=== PATIENT | male | born 1970 | race African-American/Black ===

== ENCOUNTER 2018-04-01 15:07 | Inpatient (IN) | payer OTHER, MEDICAID ==
[~2018-04-01] VITALS: Ht 175.3 cm; Wt 50.8 kg
[2018-04-01 15:44] LABS: BASOPHILS % (AUTO) 0.6 % (0.0-5.0); HEMATOCRIT 38.1 % (42-54); LYMPHOCYTES % (AUTO) 12.4 % (21.0-51.0); MEAN CORPUSCULAR HEMOGLOBIN 27.7 pg (27.0-33.0); MEAN CORPUSCULAR HGB CONC 32.9 g/dL (32.0-36.0); MEAN CORPUSCULAR VOLUME 84.2 fL (79-99); MONOCYTES % (AUTO) 7.8 % (3.0-13.0); NEUTROPHILS % (AUTO) 79.2 % (40.0-77.0); NUCLEATED RED BLOOD CELLS 0.1 % (0.0-0.19); PLATELET COUNT (AUTO) 181 K/uL (130-400); RED BLOOD CELL COUNT(AUTO) 4.52 MIL/uL (4.50-6.20); RED CELL DISTRIBUTION WIDTH 23.5 % (11.0-15.5); WHITE BLOOD COUNT (AUTO) 11.3 K/uL (4.8-10.8)
[2018-04-01 15:51] LABS: CARBON DIOXIDE 28 mmol/L (21-32); CHLORIDE 92 mmol/L (101-111); CREATININE 5.1 mg/dL (0.5-1.5); GLOMERULAR FILTR. RATE CALC 16 mL/min (>60); GLUCOSE,RANDOM 139 mg/dL (70-105); SODIUM SERUM 132 mmol/L (136-145); UREA NITROGEN, BLOOD 21 mg/dL (7-18)
[2018-04-01 15:54] LABS: INR 1.07 (0.85-1.15); PARTIAL THROMBOPLASTIN TIME 34.4 SEC (26.3-35.5); PROTHROMBIN TIME 11.2 SEC (9.6-11.6)
[2018-04-01] MEDS ORDERED: VANCOMYCIN 1GM+NS 250ML 250 ML IV ONE (15:55)
[2018-04-01 16:17] LABS: ALANINE AMINOTRANSFERASE 29 U/L (12-78); ALBUMIN 3.2 g/dL (3.5-5.0); ASPARTATE AMINOTRANSFERASE 33 U/L (10-37); BILIRUBIN,TOTAL 1.1 mg/dL (0.2-1.0); CREATINE KINASE MB 2.7 ng/mL (0.5-3.6); CREATINE KINASE, TOTAL 227 U/L (21-232); MYOGLOBIN 1316 ng/mL (10-92); TOTAL PROTEIN, SERUM 8.4 g/dL (6.0-8.3); TROPONIN I < 0.04 ng/mL (0.00-0.06)
[2018-04-01 19:00] VITALS: BP 123/81
[2018-04-01] MEDS: LEVOFLOXACIN 250 MG/D5W 50ML 50 ML IVPB SCH (21:27)
[2018-04-01] MEDS ORDERED: GLUCAGON 1MG KIT 1 MG ML IM PRN (21:30)
[2018-04-01] MEDS ORDERED: MORPHINE SULFATE 2 MG/ML 1ML SYG IVP PRN (21:30)
[2018-04-01] MEDS ORDERED: ACETAMINOPHEN 325 MG TAB PO PRN (21:30)
[2018-04-01] MEDS ORDERED: VANCOMYCIN PROTOCOL PER PHARMACY IV SCH (21:30)
[2018-04-01] MEDS ORDERED: DEXTROSE 50%-WATER 50 ML DISP.SYRIN IV PRN (21:30)
[2018-04-01] MEDS ORDERED: LEVOFLOXACIN 250 MG/D5W 50ML 50 ML IVPB SCH (22:00)
[2018-04-02] VITALS: BP 108/78
[2018-04-02 04:00] VITALS: BP 122/83
[2018-04-02 05:24] LABS: HEMATOCRIT 37.8 % (42-54); MEAN CORPUSCULAR HEMOGLOBIN 28.9 pg (27.0-33.0); MEAN CORPUSCULAR HGB CONC 34.2 g/dL (32.0-36.0); MEAN CORPUSCULAR VOLUME 84.5 fL (79-99); PLATELET COUNT (AUTO) 178 K/uL (130-400); RED BLOOD CELL COUNT(AUTO) 4.47 MIL/uL (4.50-6.20); RED CELL DISTRIBUTION WIDTH 23.2 % (11.0-15.5); WHITE BLOOD COUNT (AUTO) 8.6 K/uL (4.8-10.8)
[2018-04-02 05:33] LABS: CREATININE 6.5 mg/dL (0.5-1.5)
[2018-04-02] MEDS: INSULIN HUMULIN R 100 UNIT/ML 3ML SQ SCH ×4 (05:43→20:40)
[2018-04-02 08:00] VITALS: BP 117/80
[2018-04-02] MEDS ORDERED: FAMOTIDINE 20MG TAB 20 MG TAB PO SCH (09:00)
[2018-04-02] MEDS ORDERED: ENOXAPARIN SODIUM 40 MG/0.4 ML SYRINGE SQ SCH (09:00)
[2018-04-02] MEDS: FAMOTIDINE 20MG TAB 20 MG TAB PO SCH ×2 (09:19→20:39)
[2018-04-02 11:00] VITALS: BP 154/100
[2018-04-02] MEDS ORDERED: COMPOUND IV REFRIGERATED 1 EACH IVSOLN MISC PRN (13:00)
[2018-04-02] MEDS ORDERED: URSO250T11 PO (14:55)
[2018-04-02] MEDS ORDERED: PANT40TA25 PO (14:55)
[2018-04-02] MEDS ORDERED: GABA-529 PO (14:55)
[2018-04-02 16:00] VITALS: BP 193/124
[2018-04-02] MEDS ORDERED: METOPROLOL TARTRATE 50 MG TAB ONE (16:02)
[2018-04-02] MEDS: METOPROLOL TARTRATE 50 MG TAB PO SCH (16:15)
[2018-04-02] MEDS ORDERED: METOPROLOL TARTRATE 50 MG TAB PO SCH (16:15)
[2018-04-02 19:00] VITALS: BP 159/103
[2018-04-02] MEDS ORDERED: METOPROLOL TARTRATE 1 MG/ML 5ML VIAL IV PRN (20:15)
[2018-04-02] MEDS: HYDRALAZINE HCL 20 MG/ML VIAL IV PRN (20:33)
[2018-04-02] MEDS: ACETAMINOPHEN 325 MG TAB PO PRN (22:25)
[2018-04-03] VITALS (7 sets, daily range): BP systolic 118–196; BP diastolic 86–121
[2018-04-03] MEDS: INSULIN HUMULIN R 100 UNIT/ML 3ML SQ SCH ×4 (07:30→20:25)
[2018-04-03] MEDS ORDERED: ENOXAPARIN SODIUM 40 MG/0.4 ML SYRINGE SQ SCH (09:00)
[2018-04-03] MEDS: ZOSYN 3.375GM+NS 50ML 50 ML IV SCH ×2 (09:51→20:21)
[2018-04-03] MEDS: FAMOTIDINE 20MG TAB 20 MG TAB PO SCH ×2 (09:51→20:19)
[2018-04-03] MEDS: ENOXAPARIN SODIUM 30 MG/0.3 ML SQ SCH (09:54)
[2018-04-03] MEDS ORDERED: LISINOPRIL 20 MG TABLET PO SCH (10:30)
[2018-04-03] MEDS: HYDRALAZINE HCL 20 MG/ML VIAL IV PRN ×2 (11:35→17:50)
[2018-04-03] MEDS: SIMETHICONE 80 MG TAB.CHEW PO PRN (13:03)
[2018-04-03] MEDS: METOPROLOL TARTRATE 50 MG TAB PO SCH (16:15)
[2018-04-03] MEDS: ACETAMINOPHEN 325 MG TAB PO PRN (20:21)
[2018-04-04] VITALS: BP 109/70
[2018-04-04] MEDS: LEVOFLOXACIN 250 MG/D5W 50ML 50 ML IVPB SCH (00:25)
[2018-04-04] MEDS: SIMETHICONE 80 MG TAB.CHEW PO PRN ×2 (01:49→09:53)
[2018-04-04] MEDS: INSULIN HUMULIN R 100 UNIT/ML 3ML SQ SCH ×4 (04:22→19:28)
[2018-04-04 04:29] VITALS: BP 153/99
[2018-04-04 06:34] LABS: BASOPHILS % (AUTO) 0.7 % (0.0-5.0); EOSINOPHILS % (AUTO) 0.5 % (0.0-8.0); HEMATOCRIT 40.2 % (42-54); LYMPHOCYTES % (AUTO) 12.5 % (21.0-51.0); MEAN CORPUSCULAR HEMOGLOBIN 28.4 pg (27.0-33.0); MEAN CORPUSCULAR HGB CONC 34.1 g/dL (32.0-36.0); MEAN CORPUSCULAR VOLUME 83.4 fL (79-99); NEUTROPHILS % (AUTO) 75.3 % (40.0-77.0); PLATELET COUNT (AUTO) 257 K/uL (130-400); RED BLOOD CELL COUNT(AUTO) 4.82 MIL/uL (4.50-6.20); RED CELL DISTRIBUTION WIDTH 22.2 % (11.0-15.5); WHITE BLOOD COUNT (AUTO) 7.6 K/uL (4.8-10.8)
[2018-04-04 06:44] LABS: CREATININE 4.2 mg/dL (0.5-1.5); POTASSIUM 3.1 mmol/L (3.5-5.1)
[2018-04-04] MEDS ORDERED: SODIUM CHLORIDE 0.9% 1000ML 1,000 ML IV PRN (07:15)
[2018-04-04] MEDS ORDERED: 0.9% SODIUM CHLORIDE 250 ML IV BAG IV PRN (07:15)
[2018-04-04] MEDS ORDERED: ALBUMIN (HUMAN) 25% 100 ML IV PRN (07:15)
[2018-04-04 08:00] VITALS: BP 151/104
[2018-04-04] MEDS: FAMOTIDINE 20MG TAB 20 MG TAB PO SCH ×2 (08:09→20:22)
[2018-04-04] MEDS: ZOSYN 3.375GM+NS 50ML 50 ML IV SCH ×2 (08:09→20:22)
[2018-04-04] MEDS: ENOXAPARIN SODIUM 30 MG/0.3 ML SQ SCH (08:11)
[2018-04-04] MEDS: HYDRALAZINE HCL 20 MG/ML VIAL IV PRN ×2 (08:12→20:25)
[2018-04-04] MEDS: LISINOPRIL 20 MG TABLET PO SCH (09:00)
[2018-04-04] MEDS ORDERED: LISINOPRIL 20 MG TABLET PO SCH (09:00)
[2018-04-04 12:00] VITALS: BP 127/88
[2018-04-04] MEDS ORDERED: LIDOCAINE HCL-MPF 2% 5ML VIAL ONE (13:08)
[2018-04-04 16:00] VITALS: BP 160/110
[2018-04-04] MEDS ORDERED: VANCOMYCIN 0.75 GM in N.S. 250 ML IV SCH (16:00)
[2018-04-04] MEDS: METOPROLOL TARTRATE 50 MG TAB PO SCH (16:15)
[2018-04-04 20:00] VITALS: BP 168/108
[2018-04-04] MEDS: ACETAMINOPHEN 325 MG TAB PO PRN (20:53)
[2018-04-05] VITALS (8 sets, daily range): BP systolic 109–158; BP diastolic 68–104
[2018-04-05] MEDS: INSULIN HUMULIN R 100 UNIT/ML 3ML SQ SCH ×4 (05:43→21:00)
[2018-04-05] MEDS: ONDANSETRON HCL 4 MG/2 ML VIAL IVP PRN (05:47)
[2018-04-05] MEDS: ZOSYN 3.375GM+NS 50ML 50 ML IV SCH ×2 (07:23→22:15)
[2018-04-05] MEDS: LISINOPRIL 20 MG TABLET PO SCH (07:23)
[2018-04-05] MEDS: FAMOTIDINE 20MG TAB 20 MG TAB PO SCH ×2 (07:23→22:15)
[2018-04-05] MEDS: ENOXAPARIN SODIUM 30 MG/0.3 ML SQ SCH (07:25)
[2018-04-05] MEDS: MEGESTROL 400 MG/10 ML UDCUP PO SCH (10:57)
[2018-04-05] MEDS: METOPROLOL TARTRATE 25 MG TAB PO SCH ×2 (10:57→22:15)
[2018-04-05] MEDS ORDERED: AMLODIPINE BESYLATE 5 MG TAB PO ONE (18:00)
[2018-04-06 00:35] VITALS: BP 130/88
[2018-04-06 04:25] VITALS: BP 133/86
[2018-04-06 05:11] LABS: POTASSIUM 4.6 mmol/L (3.5-5.1)
[2018-04-06 05:25] LABS: CREATININE 9.7 mg/dL (0.5-1.5)
[2018-04-06] MEDS: INSULIN HUMULIN R 100 UNIT/ML 3ML SQ SCH ×4 (07:30→20:56)
[2018-04-06 08:00] VITALS: BP 151/96
[2018-04-06] MEDS: ENOXAPARIN SODIUM 30 MG/0.3 ML SQ SCH (09:00)
[2018-04-06] MEDS: ZOSYN 3.375GM+NS 50ML 50 ML IV SCH ×2 (09:43→20:50)
[2018-04-06] MEDS: LISINOPRIL 20 MG TABLET PO SCH (10:01)
[2018-04-06] MEDS: FAMOTIDINE 20MG TAB 20 MG TAB PO SCH ×3 (10:01→20:56)
[2018-04-06] MEDS: MEGESTROL 400 MG/10 ML UDCUP PO SCH (10:01)
[2018-04-06] MEDS: AMLODIPINE BESYLATE 5 MG TAB PO SCH (10:01)
[2018-04-06] MEDS: METOPROLOL TARTRATE 25 MG TAB PO SCH ×2 (10:01→20:51)
[2018-04-06 11:00] VITALS: BP 137/96
[2018-04-06 16:00] VITALS: BP 152/95
[2018-04-06 19:00] VITALS: BP_SYST 156; BP_SYST 175; BP_DIAS 100; BP_DIAS 106
[2018-04-06] MEDS: PANTOPRAZOLE SODIUM 40 MG TABLET.DR PO SCH ×2 (20:54→20:56)
[2018-04-07] VITALS (8 sets, daily range): BP systolic 118–165; BP diastolic 73–97
[2018-04-07 04:28] LABS: HEMATOCRIT 36.6 % (42-54); MEAN CORPUSCULAR HEMOGLOBIN 28.3 pg (27.0-33.0); MEAN CORPUSCULAR HGB CONC 33.8 g/dL (32.0-36.0); MEAN CORPUSCULAR VOLUME 83.8 fL (79-99); PLATELET COUNT (AUTO) 323 K/uL (130-400); RED BLOOD CELL COUNT(AUTO) 4.37 MIL/uL (4.50-6.20); RED CELL DISTRIBUTION WIDTH 21.9 % (11.0-15.5); WHITE BLOOD COUNT (AUTO) 9.5 K/uL (4.8-10.8)
[2018-04-07 04:38] LABS: INR 0.95 (0.85-1.15); PARTIAL THROMBOPLASTIN TIME 27.7 SEC (26.3-35.5)
[2018-04-07 04:40] LABS: POTASSIUM 4.8 mmol/L (3.5-5.1)
[2018-04-07 04:46] LABS: BAND NEUTROPHILS % (MANUAL) 3 % (0-2); LYMPHOCYTES % (MANUAL) 15 % (22-44); MAN.DIFF COMMENT-IMPRESSION MANUAL DIFFERENTIAL; MONOCYTES % (MANUAL) 6 % (2-9); PLATELET MORPHOLOGY COMMENT ADEQUATE; SEGMENTED NEUTROPHILS % 76 % (40-70)
[2018-04-07] MEDS: INSULIN HUMULIN R 100 UNIT/ML 3ML SQ SCH ×5 (06:58→19:54)
[2018-04-07] MEDS: PANTOPRAZOLE SODIUM 40 MG TABLET.DR PO SCH (08:32)
[2018-04-07] MEDS: AMLODIPINE BESYLATE 5 MG TAB PO SCH (08:33)
[2018-04-07] MEDS: LISINOPRIL 20 MG TABLET PO SCH (08:33)
[2018-04-07] MEDS: ZOSYN 3.375GM+NS 50ML 50 ML IV SCH ×2 (08:33→22:15)
[2018-04-07] MEDS: FAMOTIDINE 20MG TAB 20 MG TAB PO SCH ×2 (08:33→22:15)
[2018-04-07] MEDS: METOPROLOL TARTRATE 25 MG TAB PO SCH ×2 (08:33→22:15)
[2018-04-07] MEDS: ENOXAPARIN SODIUM 30 MG/0.3 ML SQ SCH (08:34)
[2018-04-07] MEDS: ONDANSETRON HCL 4 MG/2 ML VIAL IVP PRN (11:34)
[2018-04-07] MEDS: HYDRALAZINE HCL 20 MG/ML VIAL IV PRN (15:50)
[2018-04-08] VITALS (13 sets, daily range): BP systolic 108–209; BP diastolic 74–127
[2018-04-08] MEDS: METOPROLOL TARTRATE 25 MG TAB PO SCH ×2 (04:34→10:34)
[2018-04-08 05:39] LABS: MEAN CORPUSCULAR HGB CONC 33.5 g/dL (32.0-36.0); MEAN CORPUSCULAR VOLUME 83.4 fL (79-99); PLATELET COUNT (AUTO) 426 K/uL (130-400); RED BLOOD CELL COUNT(AUTO) 4.32 MIL/uL (4.50-6.20); RED CELL DISTRIBUTION WIDTH 21.3 % (11.0-15.5); WHITE BLOOD COUNT (AUTO) 8.5 K/uL (4.8-10.8)
[2018-04-08 05:40] LABS: INR 0.95 (0.85-1.15); PARTIAL THROMBOPLASTIN TIME 27.9 SEC (26.3-35.5)
[2018-04-08 05:56] LABS: PHOSPHORUS 7.7 mg/dL (2.5-4.9); POTASSIUM 4.4 mmol/L (3.5-5.1)
[2018-04-08 05:59] LABS: CREATININE 12.2 mg/dL (0.5-1.5)
[2018-04-08 06:05] LABS: BASOPHILS % (MANUAL) 1 % (0-2); EOSINOPHILS % (MANUAL) 2 % (1-6); LYMPHOCYTES % (MANUAL) 19 % (22-44); MAN.DIFF COMMENT-IMPRESSION MANUAL DIFFERENTIAL; MONOCYTES % (MANUAL) 12 % (2-9); SEGMENTED NEUTROPHILS % 66 % (40-70)
[2018-04-08] MEDS ORDERED: SODIUM BICARB 50MEQ 50ML VIAL ONE (08:42)
[2018-04-08] MEDS ORDERED: LIDOCAINE HCL-MPF 2% 5ML VIAL ONE (08:42)
[2018-04-08] MEDS: ENOXAPARIN SODIUM 30 MG/0.3 ML SQ SCH (09:00)
[2018-04-08] MEDS: FAMOTIDINE 20MG TAB 20 MG TAB PO SCH ×2 (10:35→21:47)
[2018-04-08] MEDS: AMLODIPINE BESYLATE 5 MG TAB PO SCH (10:36)
[2018-04-08] MEDS: LISINOPRIL 20 MG TABLET PO SCH (10:36)
[2018-04-08] MEDS: PANTOPRAZOLE SODIUM 40 MG TABLET.DR PO SCH (10:36)
[2018-04-08] MEDS: MEGESTROL 400 MG/10 ML UDCUP PO SCH (10:37)
[2018-04-08] MEDS: ZOSYN 3.375GM+NS 50ML 50 ML IV SCH ×2 (10:46→21:47)
[2018-04-08] MEDS: INSULIN HUMULIN R 100 UNIT/ML 3ML SQ SCH ×3 (11:30→21:00)
[2018-04-08] MEDS ORDERED: HEPARIN SODIUM 5000UNIT/ML 1ML VIAL ONE (13:13)
[2018-04-08] MEDS ORDERED: HEPARIN SODIUM 5000UNIT/ML 1ML VIAL IJ PRN (13:30)
[2018-04-08] MEDS: ONDANSETRON HCL 4 MG/2 ML VIAL IVP PRN ×2 (14:57→19:21)
[2018-04-08] MEDS ORDERED: DESMOPRESSIN ACETATE IJ SCH (18:30)
[2018-04-08] MEDS ORDERED: SODIUM CHLORIDE 0.9% IJ SCH (18:30)
[2018-04-08 19:32] LABS: HEMATOCRIT 39.5 % (42-54)
[2018-04-08] MEDS ORDERED: LIDOCAINE HCL MPF 1% 5ML VIAL ONE (19:53)
[2018-04-08] MEDS: HYDRALAZINE HCL 20 MG/ML VIAL IV PRN (20:56)
[2018-04-09 03:00] VITALS: BP 124/85
[2018-04-09 04:50] LABS: HEMATOCRIT 35.5 % (42-54)
[2018-04-09 07:00] VITALS: BP 130/83
[2018-04-09] MEDS: INSULIN HUMULIN R 100 UNIT/ML 3ML SQ SCH ×2 (07:30→11:30)
[2018-04-09] MEDS: PANTOPRAZOLE SODIUM 40 MG TABLET.DR PO SCH (08:32)
[2018-04-09] MEDS: MEGESTROL 400 MG/10 ML UDCUP PO SCH (08:32)
[2018-04-09] MEDS: ZOSYN 3.375GM+NS 50ML 50 ML IV SCH (08:32)
[2018-04-09] MEDS: AMLODIPINE BESYLATE 5 MG TAB PO SCH (08:32)
[2018-04-09] MEDS: LISINOPRIL 20 MG TABLET PO SCH (08:33)
[2018-04-09] MEDS: METOPROLOL TARTRATE 25 MG TAB PO SCH (08:33)
[2018-04-09] MEDS: FAMOTIDINE 20MG TAB 20 MG TAB PO SCH (08:45)
[2018-04-09] MEDS: ENOXAPARIN SODIUM 30 MG/0.3 ML SQ SCH (09:00)
[2018-04-09 11:00] VITALS: BP 128/90
[2018-04-09] MEDS ORDERED: METO50TA18 PO (12:12)
== END 2018-04-09 14:00 | disposition home or self-care (01) | DRG 314 ==
LOC: EDH 15:07 → EDHIP 15:08 → 3AH 19:29
PROVIDERS: ADMIT Internal Medicine Nephrology; ATTEND Internal Medicine Nephrology
PROC: 5A1D70Z Performance of Urinary Filtration, Intermittent, Less than 6 Hours Per Day (ICD-10-PCS; 2018-04-04)
PROC: 5A1D70Z Performance of Urinary Filtration, Intermittent, Less than 6 Hours Per Day (ICD-10-PCS; 2018-04-08)
PROC: 05PYX3Z Removal of Infusion Device from Upper Vein, External Approach (ICD-10-PCS; principal; 2018-04-09)
PROC: 02H633Z Insertion of Infusion Device into Right Atrium, Percutaneous Approach (ICD-10-PCS; 2018-04-09)
PROC: B544ZZA Ultrasonography of Left Jugular Veins, Guidance (ICD-10-PCS; 2018-04-09)
PROC: 0JH63XZ Insertion of Tunneled Vascular Access Device into Chest Subcutaneous Tissue and Fascia, Percutaneous Approach (ICD-10-PCS; 2018-04-09)
DX: T80.211A Bloodstream infection due to central venous catheter, initial encounter (principal); A41.50 Gram-negative sepsis, unspecified; N18.6 End stage renal disease; J96.90 Respiratory failure, unspecified, unspecified whether with hypoxia or hypercapnia; E87.1 Hypo-osmolality and hyponatremia; I12.0 Hypertensive chronic kidney disease with stage 5 chronic kidney disease or end stage renal disease; H33.22 Serous retinal detachment, left eye; T82.7XXA Infection and inflammatory reaction due to other cardiac and vascular devices, implants and grafts, initial encounter; Y69 Unspecified misadventure during surgical and medical care; Y92.89 Other specified places as the place of occurrence of the external cause; Z79.4 Long term (current) use of insulin; K21.9 Gastro-esophageal reflux disease without esophagitis; E11.22 Type 2 diabetes mellitus with diabetic chronic kidney disease; R11.10 Vomiting, unspecified; R34 Anuria and oliguria; Z99.2 Dependence on renal dialysis; B96.4 Proteus (mirabilis) (morganii) as the cause of diseases classified elsewhere; E87.70 Fluid overload, unspecified; Z82.49 Family history of ischemic heart disease and other diseases of the circulatory system; Z83.3 Family history of diabetes mellitus; Z80.8 Family history of malignant neoplasm of other organs or systems; R11.2 Nausea with vomiting, unspecified; R53.81 Other malaise; D64.9 Anemia, unspecified; Y83.8 Other surgical procedures as the cause of abnormal reaction of the patient, or of later complication, without mention of misadventure at the time of the procedure; Z80.3 Family history of malignant neoplasm of breast
CPT/HCPCS: 36415; 36558; 36589; 71045; 77001; 80048; 80053; 82550; 82553; 82948; 83605; 83874; 84100; 84484; 85014; 85018; 85025; 85027; 85610; 85730; 87040; 87070; 87186; 90935; 93005; 93306; 97039; 99291; C1750; C1769; J0360; J1644; J1650; J1956; J2405; J2543; J2597; J3370; J3490